=== PATIENT | female | born 1945 | race Caucasian/White ===

== ENCOUNTER → 2024-06-14 | Outpatient (CLI) | payer MEDICARE, OTHER, SELFPAY ==
[2024-06-14 09:31] LABS: Basophils # (Auto) 0.1 Thou/mm3 (0.0-0.2); Basophils % (Auto) 2 % (0-2.5); Eosinophils # (Auto) 0.1 Thou/mm3 (0.0-0.5); Eosinophils % (Auto) 2 % (0-10); Hematocrit 36.3 % (36.0-46.0); Hemoglobin 11.7 g/dL (12.0-16.0); Immature Granulocytes % (Auto) 0 % (0-0); Immature Granulocytes Auto 0.02 Thou/mm3 (0.00-0.00); Lymphocytes # (Auto) 2.1 Thou/mm3 (1.0-4.8); Lymphocytes % (Auto) 37 % (10-50); Mean Corpuscular HGB Conc 32.2 g/dl (31.0-37.0); Mean Corpuscular Hemoglobin 29.1 pg (25.0-35.0); Mean Corpuscular Volume 90 fL (80-100); Monocytes # (Auto) 0.4 Thou/mm3 (0.0-0.8); Monocytes % (Auto) 7 % (0-12); Neutrophils % (Auto) 53 % (37-80); Nucleated Red Blood Cell % 0 /100 WBC (0); Platelet Count 243 Thou/mm3 (140-440); RDW Standard Deviation 44.1 fL (36.4-46.3); Red Blood Count 4.02 Miln/mm3 (4.00-5.20); White Blood Count 5.8 Thou/mm3 (3.6-11.0)
[2024-06-14 10:00] LABS: CA 15-3 19.9 U/mL (<32.4); Carcinoembryonic Antigen 2.7 ng/mL (0.0-5.0)
[2024-06-14 10:01] LABS: Alanine Aminotransferase 10 U/L (10-49); Albumin, Serum 4.1 gm/dL (3.4-4.8); Albumin/Globulin Ratio 1.8 (1.2-2.2); Alkaline Phosphatase 87 U/L (46-116); Anion Gap 7 (7-16); Aspartate Amino Transferase 10 U/L (0-34); BUN/Creatinine Ratio 15 Ratio (12-20); Bilirubin,Total 0.4 mg/dL (0.3-1.2); Blood Urea Nitrogen 9 mg/dL (9-23); Carbon Dioxide 25.7 mMol/L (20.0-31.0); Chloride 106 mMol/L (98-107); Creatinine (Component) 0.6 mg/dL (0.6-1.3); Free T4 (Free Thyroxine) 1.07 ng/dL (0.89-1.76); Globulin 2.3 gm/dL (2.3-3.5); Glucose 200 mg/dL (74-106); Osmolality,Calculated 282 (275-295); Potassium 4.1 mMol/L (3.4-5.1); Sodium 139 mMol/L (136-145); Thyroid Stimulating Hormone 1.22 uIU/mL (0.55-4.78); Total Protein 6.4 gm/dL (5.7-8.2); eGFR > 60 See Note
[2024-06-14 10:15] LABS: Ferritin 14 ng/mL (7.3-270.7); Total Iron Binding Capacity 333 mcg/dL (250-425)
[2024-06-14 10:25] LABS: Iron 62 mcg/dL (50-170); Percent Iron Saturation 18 % (20-55); Unsaturated Iron Binding 271 (225-295)
== END | disposition home or self-care (01) ==
LOC: SCTO 08:29
PROVIDERS: PCP Family Medicine; Referring Provider Nurse Practitioner Family; Visit Provider Nurse Practitioner Family
DX: D50.9 Iron deficiency anemia, unspecified (principal)
CPT/HCPCS: 36415; 80053; 82378; 82728; 83540; 83550; 84439; 84443; 85025; 86300

== ENCOUNTER 2024-06-17 14:29 | Outpatient (RCR) | payer MEDICARE, OTHER, SELFPAY ==
--- NOTE | 2024-06-16 05:51 | CTCFLWUP_ITS ---
[address] [address] FOLLOW UP NOTE DATE OF VISIT: 06/15/2024 NAME: ZOEY TERRAZAS MR#: [id number] : 1945 AGE: 78 DIAGNOSIS: Stage IIA (pT2 pNO), ER positive, WA negative HER2 negative, low Oncotype Dx recurrence score of 24, left invasive lobular carcinoma, with lobular features, moderately differentiated, grade 2 of 3, Status post left simple mastectomy, left sentinel node biopsy, right prophylactic mastectomy 04/03/20 23, Dr. Slater. No radiation indicated. Anastrozole started on 06/02/2023, plan to tailor 06/02 2 mm left lower lobe pulmonary nodule, (08/15/2023) History of iron deficiency anemia secondary to gastric bypass surgery 2010 B12 deficiency, on monthly injections. DEXA scan done on 12/19/2021, osteopenia, on Fosamax. REASON FOR TODAY?S VISIT: Patient is here to follow-up on the thyroid biopsy. Patient was noted to have multiple nodules in he r thyroid. She does not follow-up with endocrinology. Thyroid ultrasound done showed multiple bilat eral thyroid nodules, consider ultrasound-guided fine-needle aspiration of right upper pole thyroid n odule, 15 x 7 x 11 mm, 04/05/2024. Unfortunately, patient did not complete labs prior to today's appoi ntment. Patient denies dysphagia. Patient denies any concerns or complaints. Patient is feeling well overall. Reports good appetite. Energy has improved since she started B12 injections. Taking anastrozole da brooklynn, Fosamax weekly and Citracal daily, tolerating well, denies body aches. Walking with assistance o f cane. Patient denies abdominal pain, denies cough, chest pain, fever. HISTORY OF PRESENT ILLNESS: PREVIOUS NOTE Zoey Terrazas is a 78-year-old ENG speaking fe male with history of gastric bypass surgery in 2010 for obesity, diabetes mellitus, former smoker, marrero d CBC drawn on 03/11/2019. Hemoglobin was 10.6, hematocrit 34.8, MCV 89, WBC count 7.4, platelets 23 7,000's. Iron saturation was 9%. History of iron deficiency anemia. Stage IIA (pT2 pNO), ER posit chavez, [place] negative HER2 negative, low Oncotype Dx recurrence score of 24, left invasive lobular carcino ma, moderately differentiated, grade 2 of 3, Status post left simple mastectomy, left sentinel node biopsy, right prophylactic mastectomy 04/03/20 23, Dr. Slater. 2011: Gastric bypass 04/14/2019: Hemoglobin 11.1, MCV 87, iron saturation 8%, ferritin 17. 05/27/2019?08/04/1999: Patient received 2 g of Venofer. 07/21/2019: WBC 9.0, hemoglobin 12.6, hematocrit 40, MCV 91, iron saturation 24%, ferritin 397. 01/27/2020: Hemoglobin 12.8, MCV 92, WBC 6.6, platelets 210,000. Iron saturation 42%, ferritin 296. 09/14/2021: Hemoglobin 12.6, MCV 91, WBC 6.0, ANC 2.5, platelets 249,000, 12/18/2021: Iron saturation 24%, ferritin 85, folate 5.32, B12 306. CBC not drawn. 12/19/2021: DEXA Impression: There is osteopenia based on lumbar spine measurements. There is osteopenia based on hip measurements Lumbar mineralization is decreased 2.5% compared with August 25, 2019 Hip mineralization is decreased 1.8% compared with August 25, 2019 01/08/2023: Mammogram 01/09/2023: breast ultrasound 02/11/2023: breast pathology 02/20/2023: breast MRI 04/03/2023: Bilateral mastectomy, pathology 05/13/2023: Hemoglobin 11.8, MCV 90, WBC 6.3, platelet count 210,000, iron saturation 23%, ferritin 1 1, B12 is 372, folate 24. 05/28/2023: Oncotype Dx score 08/15/2023: Hemoglobin 11.8, MCV 88 iron saturation 23%, ferritin 13, CEA 2.8, CA 15-3 is 19.3 08/15/2023: CT chest without contrast IMPRESSION: 6 mm left thyroid nodule 2 mm, adjacent 2 mm left lower lobe pulmonary nodules, with this study is baseline suggest 6 month follow-up CT chest without contrast Nodular thickening left adrenal gland, consider CT scan abdomen pelvis post intravenous contrast follow-up 09/16/2023: CT abdomen and pelvis with contrast Impression: Nodular thickening left adrenal gland Abnormal uterus, large, at least 5.8 cm hypodense uterine fundal mass, recommend transvaginal transabdominal pelvic sonography follow-up 09/23/2023: Left Breast US Findings: No cystic or solid mass noted Impression: BI-RADS Category 1: Negative study 10/14/2023: Abdominal ultrasound MPRESSION: Absent gallbladder Normal common bile duct Primary hepatocellular disease no focal liver lesions Moderate bilateral renal parenchymal scar formation, no hydronephrosis 10/14/2023: Pelvic/transvaginal ultrasound IMPRESSION: Large uterine fundal mass 6.8 x 6.9 x 7.1 cm, differential would include malignant neoplasm of the uterus Recommend MRI pelvis follow-up pre and postcontrast 10/20/2023 : brain MRI Impression: 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 02/13/2024: CT chest without contrast 04/05/2024: Thyroid ultrasound-multiple bilateral thyroid nodules, consider ultrasound-guided fine-nee dle aspiration of the upper pole right thyroid nodule 15 x 7 x 11 mm PAST MEDICAL HISTORY: Diabetes Arthritis Bullous pemphogoid Left breast invasive lobular carcinoma Brain meningioma PAST SURGICAL HISTORY: Cholecystectomy - 1979 Meningioma removed brain - 1999 Meningioma removed brain - 2000 Cataract surgery maurice - 2007 Gastric bypass- 2012 Right total knee replacement - 2014 Left knee surgery - 2016 Left total knee replacement - 10/2018 EGD- 09/2018 Colonoscopy - 2019 Bilateral mastectomy 04/03/[address] Slater at [facility] MEDICATIONS: carbamazepine Vitamin D3 [cholecalciferol (vitamin d3)] Flintstones Complete (iron) [pediatric multivitamin no.43/ferrous fumarate] Vitamin C [ascorbic acid] folic acid lisinopril ibuprofen anastrozole Citracal + D Slow Release [calcium carbonate and citrate/cholecalciferol (vit d3)] alendronate carBAMazepine glimepiride pantoprazole Medications last reconciled 05/04/2024 ALLERGIES: hydrocodone-acetaminophen REVIEW OF SYSTEMS Neurological: No headache, seizures or blurring of vision. Gastrointestinal: No nausea, vomiting, diarrhea or constipation. Cardiovascular: No palpitations or angina pains. Respiratory: No cough, chest pain or shortness of breath. VITAL SIGNS: Date Time PHYSICAL EXAMINATION: Conjunctivae is white Oral cavity: No Lesions. Neck: Supple, no adenopathy. Chest is clear to auscultation. No wheezes or rales audible. CVS: Rhythm regular, no murmurs. Abdomen is soft. No hepatosplenomegaly. Extremities: No pedal edema. No cyanosis. LABORATORY DATA: Date 06/03/2024 06/14/2024 Time 8:19 AM 8:45 AM CBC ?WHITE BLOOD COUNT (Thou/mm3) 7.1 5.8 ??RED BLOOD COUNT (Miln/mm3) 4.18 4.02 ??HEMOGLOBIN (gm/dl) 12.0 11.7 L ??HEMATOCRIT (%) 37.2 36.3 ??MCV (MEAN CORPUSCULAR VOL) (fl) 89 90 ??MCH (MEAN CORPUSCULAR HGB) (pg) 28.7 29.1 ??MCHC (MEAN CORPSCULR HGB CONC) (gm/dl) 32.3 32.2 ??RDW (RBC DISTRIBUTION WDTH) SD (fl) 44.5 44.1 ??PLATELET COUNT (Thou/mm3) 256 243 ??NEUTROPHILS %, AUTO (%) 55 53 ??LYMPH %, AUTO (%) 32 37 ??MONO %, AUTO (%) 10 7 ??EOS %, AUTO (%) 2 2 ??BASO %, AUTO (%) 2 2 ??NUCLEATED RBC % (/100 WBC) 0 0 ??NEUTROPHILS, AUTO (Thou/mm3) 3.9 3.0 ??LYMPH, AUTO (Thou/mm3) 2.3 2.1 ??MONO, AUTO (Thou/mm3) 0.7 0.4 ??EOS, AUTO (Thou/mm3) 0.1 0.1 ??BASO, AUTO (Thou/mm3) 0.1 0.1 ??NUCLEATED RBC # (Thou/mm3) 0.00 0.00 ??IMMATURE GRANULOCYTES % AUTO (%) 0 0 ??IMMATURE GRANULOCYTES, AUTO (Thou/mm3) 0.01 H 0.02 H Chemistry ?GLUCOSE,RANDOM (mg/dL) ? 200 H ??BLOOD UREA NITROGEN (mg/dL) ? 9 ??CREATININE (mg/dL) ? 0.60 ??SODIUM (mmol/L) ? 139 ??POTASSIUM (mmol/L) ? 4.1 ??CHLORIDE (mmol/L) ? 106 ??CO2 (CARBON DIOXIDE) (mmol/L) ? 25.7 ??ANION GAP (mmol/L) ? 7 ??OSMOLALITY, CALC ? 282 ??BUN/CREATININE RATIO (Ratio) ? 15 ??CrCl (CandG) (ml/min) ? 76.76 ??AST/SGOT (Unit/L) ? 10 ??ALT/SGPT (Unit/L) ? 10 ??ALKALINE PHOSPHATASE (Unit/L) ? 87 ??BILIRUBIN, TOTAL (mg/dL) ? 0.4 ??PROTEIN TOTAL (gm/dl) ? 6.4 ??ALBUMIN, SERUM (gm/dl) ? 4.1 ??GLOBULIN (gm/dl) ? 2.3 ??ALBUMIN/GLOBULIN RATIO ? 1.8 ??CALCIUM, SERUM (mg/dL) ? 9.0 ??CALCIUM SERUM (CORRECTED) (mg/dL) ? 9.0 Tumor Markers ?CEA (O*) (ng/ml) ? 2.7 Additional Labs ?TOTAL IRON BINDING CAP (S*) (mcg/dL) ? [C] 333 ??UNBOUND IBC (mcg/dL) ? 271 ?Initials PB ZZZ ??Approved By PB ? Other Labs ?CrCl (J) (ml/min) ? 76.2 ??PROTHROMBIN TIME (PATIENT) (Seconds) 11.5 ? ??INR 1.1 ? ??PARTIAL THROMBOPLASTIN TIME (Seconds) 27.6 ? ??TSH (THYROID STIM HORMONE) (uIU/mL) ? 1.22 ??FERRITIN (ng/ml) ? [C] 14 ??CA 15-3 (Unit/mL) ? 19.9 ??Iron (mcg/dL) ? 62 ??Percent Iron Saturation (%) ? 18 L ??Free T4 (Free Thyroxine) (ng/dL) ? 1.07 ??eGFR (See Note) ? > 60 ASSESSMENT AND PLAN: #1. Stage IIA (pT2 pNO), ER positive, WA negative, HER2 negative, low Oncotype Dx recurrence score of 24, left invasive lobular carcinoma, with lobular features, moderately differentiated, grade 2 of 3, Status post left simple mastectomy, left sentinel node biopsy, right prophylactic mastectomy 04/03/20 23, Dr. Slater, declined revision for excess skin at surgical site. January 09, 2023 Mammogram BI-RADS 4 suspicious for malignancy upper outer left breast February 11, 2023 breast lesion biopsy showed left invasive lobular carcinoma February 20, 2023 left breast MRI which showed BI-RADS 5, No chest wall mass or pathologic lymphadenop athy noted Continue anastrozole daily, plan for 7 years. Tolerating medication well. CEA CA 15-3 prior to follow-up #2. Multiple bilateral thyroid nodules, shown an ultrasound of thyroid, 04/05/2024. Fine-needle aspiration pathology is negative advised to follow-up with primary care and endocrinology #3. MRI of pelvis with and without contrast, large uterine fundal mass, 6.6 x 5.6 x 7.1 cm, most cons istent with fibroid degeneration, (11/13/2023). Following up with [facility], Dr Javier, endometrial biopsy 12/23/2023, patient was told it was negative, marrero s follow-up with Dr Javier in June 2024. We do not have report. Requested pathology report. #4. Former smoker, quit in 1999. CT chest showed subcentimeter pulmonary nodules, recommend 6-month follow-up CT, 02/13/2024. Has existing CT ordered for 08/2024 #5. History of iron deficiency anemia secondary to gastric bypass surgery 2010 Status post 2 g of Venofer. Last dose was given on August 04, 2019. Patient had EGD and colonoscopy done [place] [address] Villegas. According Ms. Terrazas they were negative studies. CBC CMP iron panel ferritin prior to follow-up #6. History of B12 deficiency secondary to gastric bypass surgery 2010 Improved energy levels since starting monthly B12 injection Continue with monthly B12 injections #7. Osteopenia, DEXA scan done on 0 12/19/2021, and osteopenia, taking Fosamax weekly, calcium twice d aily. Ordered DEXA Continue Fosamax 70 mg weekly Continue Citracal 1 tablet twice daily. #8. Brain MRI, stable 8 x 6 mm enhancing lesion in the left cerebellopontine angle. History of meningioma, f/u with neurology, Dr Cortez, asymptomatic. #9. History of pemphigus. Asymptomatic, continue following up with PCP. RTC in 6 months Follow-up with primary care for her above chronic problems. Endocrinology consult placed to follow-u p on thyroid nodules for closer monitoring. Signed by Dr Duarte Electronically Signed by: {Object.Sanct_ID*PnP.NameFL}, {Object.Sanct_ID*PnP.Suffix} on {Object.Sanct _Date} at {Object.Sanct_Time} Electronically Signed by: {Object.Sanct_ID2*PnP.NameFL}, {Object.Sanct_ID2*PnP.Suffix} on {Object.Laureano ct_Date2@d01b} at {Object.Sanct_Time2@t3b} cc: Nabil Tijerina, Referring: Walker Tijerina This document was completed utilizing speech recognition software. Grammatical errors, random word in sertions, pronoun errors, and incomplete sentences are an occasional consequence of this system due t o software limitations, ambient noise, and hardware issues. Any formal questions or concerns about th e content, text or information contained within the body of this dictation should be directly address ed to the provider for clarification. Patient: ZOEY TERRAZAS : 1945 MR#: [id number] FOLLOW UP NOTE Page 16 of 16
== END 2024-07-13 23:59 | disposition home or self-care (01) ==
LOC: SCTC 14:29
PROVIDERS: PCP Family Medicine; Referring Provider Family Medicine; Visit Provider Internal Medicine Hematology & Oncology
DX: C50.412 Malignant neoplasm of upper-outer quadrant of left female breast (principal); Z17.0 Estrogen receptor positive status [ER+]; Z17.22 Progesterone receptor negative status; Z17.32 Human epidermal growth factor receptor 2 negative status; Z90.13 Acquired absence of bilateral breasts and nipples; E04.2 Nontoxic multinodular goiter; E53.8 Deficiency of other specified B group vitamins; R91.1 Solitary pulmonary nodule; R19.09 Other intra-abdominal and pelvic swelling, mass and lump; Z87.891 Personal history of nicotine dependence; M85.89 Other specified disorders of bone density and structure, multiple sites; Z79.811 Long term (current) use of aromatase inhibitors; Z86.2 Personal history of diseases of the blood and blood-forming organs and certain disorders involving the immune mechanism
CPT/HCPCS: 96372; 99212; J3420; G0463

== ENCOUNTER → 2024-06-18 | Outpatient (CLI) | payer MEDICARE, OTHER, SELFPAY ==
--- NOTE | 2024-06-18 12:20 | XR_ITS ---
Examination: Bone densitometry Date and time of exam:June 18, 2024 1222 hours INDICATIONS: Menopause age 58 breast carcinoma diagnosis 2 years ago, personal history osteopenia Technique: Lumbar spine and hip total bone mineralization values of an calculated. Peak reference and age match control results have been displayed. Findings: Lumbar spine total bone mineralization is0.840 gm/cm2. This is 1.9 standard deviations below peak reference. This is 0.8 standard deviations above age-matched controls. Hip total bone mineralization is 0.696 gm/cm2 This is 2.0 standard deviations below peak reference. This is 0.0 standard deviations at age-matched controls Impression: There is osteopenia based on lumbar spine measurements. There is osteopenia based on hip measurements Lumbar mineralization is increased 3.4% compared with December 19, 2021 Hip mineralization is decreased 4.1% compared with December 19, 2021
[2024-06-18 13:36] LABS: Ferritin 16 ng/mL (7.3-270.7); Total Iron Binding Capacity 344 mcg/dL (250-425)
[2024-06-18 13:49] LABS: Iron 128 mcg/dL (50-170); Percent Iron Saturation 37 % (20-55); Unsaturated Iron Binding 216 (225-295)
[2024-06-18 13:51] LABS: CA 15-3 22.7 U/mL (<32.4); Carcinoembryonic Antigen 2.3 ng/mL (0.0-5.0)
== END | disposition home or self-care (01) ==
LOC: CDIM 12:07 → SCTO 12:24
PROVIDERS: Referring Provider Nurse Practitioner Family; Visit Provider Radiology Diagnostic Radiology
DX: M85.88 Other specified disorders of bone density and structure, other site (principal); D50.9 Iron deficiency anemia, unspecified
CPT/HCPCS: 36415; 77080; 82378; 82728; 83540; 83550; 86300

== ENCOUNTER → 2024-06-24 | Outpatient (CLI) | payer MEDICARE, OTHER, SELFPAY ==
[2024-06-24 09:15] LABS: Glucose Estimated Average 169 mg/dL (80-131); Hemoglobin A1C 7.5 % Hgb (4.8-6.0)
== END | disposition home or self-care (01) ==
LOC: COPL 07:52
PROVIDERS: PCP Family Medicine; Referring Provider Family Medicine; Visit Provider Family Medicine
DX: E11.65 Type 2 diabetes mellitus with hyperglycemia (principal)
CPT/HCPCS: 36415; 83036

== ENCOUNTER 2024-07-20 14:25 | Outpatient (RCR) | payer MEDICARE, OTHER, SELFPAY | END 2024-08-13 23:59 | disposition home or self-care (01) | LOC: SCTC 14:25 | PROVIDERS: PCP Family Medicine; Referring Provider Family Medicine; Visit Provider Internal Medicine Hematology & Oncology | DX: E53.8 Deficiency of other specified B group vitamins (principal) | CPT/HCPCS: 96372; J3420 ==

== ENCOUNTER → 2024-07-22 | Outpatient (CLI) | payer MEDICARE, OTHER, SELFPAY ==
[2024-07-22 14:30] LABS: Glucose Estimated Average 177 mg/dL (80-131); Hemoglobin A1C 7.8 % Hgb (4.8-6.0)
== END | disposition home or self-care (01) ==
LOC: COPL 13:42
PROVIDERS: PCP Family Medicine; Referring Provider Family Medicine; Visit Provider Family Medicine
DX: E11.65 Type 2 diabetes mellitus with hyperglycemia (principal)
CPT/HCPCS: 36415; 83036

== ENCOUNTER 2024-08-17 14:25 | Outpatient (RCR) | payer MEDICARE, OTHER, SELFPAY | END 2024-09-10 23:59 | disposition home or self-care (01) | LOC: SCTC 14:25 | PROVIDERS: PCP Family Medicine; Referring Provider Family Medicine; Visit Provider Internal Medicine Hematology & Oncology | DX: E53.8 Deficiency of other specified B group vitamins (principal); Z98.84 Bariatric surgery status | CPT/HCPCS: 96372; J3420 ==

== ENCOUNTER → 2024-08-19 | Outpatient (CLI) | payer MEDICARE, OTHER, SELFPAY ==
--- NOTE | 2024-08-19 15:00 | XR_ITS ---
Examination: CT chest, without intravenous contrast. Sagittal and coronal 2-D reconstructions. Exam date and time: August 19, 2024 1535 hours INDICATIONS: Diagnosis bilateral breast carcinoma history 2 years ago, pulmonary nodules on chest CT February 13, 2024 CTDI:vol (mGy) 7.56 DLP: (mGycm) 266 Technique: Multiple 3.0 mm axial sections of the chest to been obtained. Bone and lung density settings are obtained. Sagittal and coronal 2-D reconstructions have been obtained. Low dose protocols were performed. One or more of the following dose reduction techniques were used; automated exposure control, adjustment of the mA and/or KV according to patient size, use of iterative reconstruction technique. Findings: Multiple small thyroid nodules No thoracic aortic aneurysm dilatation Pulmonary artery segments are not enlarged. Bilateral pulmonary nodules again noted No new pulmonary nodules No pneumonia or pulmonary edema No pleural disease No breast or chest wall mass No axillary lymphadenopathy No focal visualized liver or splenic lesions IMPRESSION: Multiple thyroid nodules, consider thyroid sonography follow-up Stable bilateral pulmonary nodules, consider 1 additional 6 month follow-up CT chest without contrast
== END | disposition home or self-care (01) ==
PROVIDERS: PCP Family Medicine; Referring Provider Nurse Practitioner Family; Visit Provider Nurse Practitioner Family
DX: E04.2 Nontoxic multinodular goiter (principal)
CPT/HCPCS: 71250

== ENCOUNTER → 2024-09-10 | Outpatient (CLI) | payer MEDICARE, OTHER, SELFPAY ==
[2024-09-10 15:21] LABS: Basophils # (Auto) 0.1 Thou/mm3 (0.0-0.2); Basophils % (Auto) 1 % (0-2.5); Eosinophils # (Auto) 0.2 Thou/mm3 (0.0-0.5); Eosinophils % (Auto) 3 % (0-10); Hematocrit 37.5 % (36.0-46.0); Hemoglobin 12.1 g/dL (12.0-16.0); Immature Granulocytes % (Auto) 0 % (0-0); Immature Granulocytes Auto 0.01 Thou/mm3 (0.00-0.00); Lymphocytes # (Auto) 2.1 Thou/mm3 (1.0-4.8); Lymphocytes % (Auto) 30 % (10-50); Mean Corpuscular HGB Conc 32.3 g/dl (31.0-37.0); Mean Corpuscular Hemoglobin 28.1 pg (25.0-35.0); Mean Corpuscular Volume 87 fL (80-100); Monocytes # (Auto) 0.6 Thou/mm3 (0.0-0.8); Monocytes % (Auto) 8 % (0-12); Neutrophils # (Auto) 4.1 Thou/mm3 (1.8-7.7); Neutrophils % (Auto) 57 % (37-80); Nucleated Red Blood Cell % 0 /100 WBC (0); Platelet Count 316 Thou/mm3 (140-440); RDW Standard Deviation 42.2 fL (36.4-46.3); Red Blood Count 4.31 Miln/mm3 (4.00-5.20); White Blood Count 7.2 Thou/mm3 (3.6-11.0)
[2024-09-10 15:40] LABS: Ferritin 14 ng/mL (7.3-270.7); Iron 52 mcg/dL (50-170); Percent Iron Saturation 15 % (20-55); Total Iron Binding Capacity 345 mcg/dL (250-425); Unsaturated Iron Binding 293 (225-295)
[2024-09-10 15:41] LABS: Alanine Aminotransferase 13 U/L (10-49); Albumin/Globulin Ratio 1.7 (1.2-2.2); Alkaline Phosphatase 89 U/L (46-116); Anion Gap 8 (7-16); Aspartate Amino Transferase 12 U/L (0-34); BUN/Creatinine Ratio 18 Ratio (12-20); Bilirubin,Total 0.2 mg/dL (0.3-1.2); Blood Urea Nitrogen 14 mg/dL (9-23); Calcium 9.1 mg/dL (8.3-10.6); Calcium (Corrected) 9.1 mg/dL (8.5-10.1); Chloride 109 mMol/L (98-107); Creatinine (Component) 0.8 mg/dL (0.6-1.3); Free T4 (Free Thyroxine) 1.04 ng/dL (0.89-1.76); Globulin 2.4 gm/dL (2.3-3.5); Glucose 229 mg/dL (74-106); Osmolality,Calculated 290 (275-295); Potassium 4.4 mMol/L (3.4-5.1); Sodium 142 mMol/L (136-145); Thyroid Stimulating Hormone 1.69 uIU/mL (0.55-4.78); Total Protein 6.4 gm/dL (5.7-8.2); eGFR > 60 See Note
[2024-09-10 15:55] LABS: CA 15-3 16.6 U/mL (<32.4); Folate 16.43 ng/mL (>5.38); Vitamin B12 521 pg/mL (211-911)
== END | disposition home or self-care (01) ==
LOC: SCTO 14:10
PROVIDERS: PCP Family Medicine; Referring Provider Nurse Practitioner Family; Visit Provider Nurse Practitioner Family
DX: D50.9 Iron deficiency anemia, unspecified (principal)
CPT/HCPCS: 36415; 80053; 82378; 82607; 82728; 82746; 83540; 83550; 84439; 84443; 85025; 86300

== ENCOUNTER 2024-09-15 14:32 | Outpatient (RCR) | payer MEDICARE, OTHER, SELFPAY ==
--- NOTE | 2024-09-14 16:24 | CTCFLWUP_ITS ---
Patient: OFE TERRAZAS : 1945 Page 2 of 2 FOLLOW UP NOTE DATE OF SERVICE: 09/14/2024 NAME: OFE TERRAZAS ACCOUNT: [id number] : 1945 AGE: 78 INTERVAL HISTORY: Patient is here for follow-up. Doing well with no new lumps or bumps anywhere. Denies any appetite or weight changes. Patient lives mostly alone and does not like cooking. Patient mostly eats [employer] [facility] [place] ONCOLOGY HISTORY: DIAGNOSIS: Iron deficiency anemia, unspecified [ICD10] D50.9 Stage IIA (pT2 pNO), ER positive, DE negative HER2 negative, low Oncotype Dx recurrence score of 24, left invasive lobular carcinoma, with lobular features, moderately differentiated, grade 2 of 3, Status post left simple mastectomy, left sentinel node biopsy, right prophylactic mastectomy 04/03/2023, Dr. Slater. No radiation indicated. Anastrozole started on 06/02/2023, plan to tailor 06/02 2 mm left lower lobe pulmonary nodule, (08/15/2023) History of iron deficiency anemia secondary to gastric bypass surgery 2010 B12 deficiency, on monthly injections. DEXA scan done on 12/19/2021, osteopenia, on Fosamax. DATE OF DIAGNOSIS: 04/03/2023 STAGE/TNM: Stage II ER positive breast cancer s/p bilateral mastectomy TREATMENT HISTORY: Care?Plan Start?Date Cycle Day Intent VENOfer?200mg?IV?weekly 05/27/2019 1 7 Palliative VENOfer?200mg?IV?wkly 01/30/2021 1 70 Palliative B?12?initial 04/06/2024 1 28 Palliative HISTORY OF PRESENT ILLNESS: PREVIOUS NOTE Ofe Terrazas is a 78-year-old ENG speaking female with history of gastric bypass surgery in 2010 for obesity, diabetes mellitus, former smoker, had CBC drawn on 03/11/2019. Hemoglobin was 10.6, hematocrit 34.8, MCV 89, WBC count 7.4, platelets 237,000's. Iron saturation was 9%. History of iron deficiency anemia. Stage IIA (pT2 pNO), ER positive, DE negative HER2 negative, low Oncotype Dx recurrence score of 24, left invasive lobular carcinoma, moderately differentiated, grade 2 of 3, Status post left simple mastectomy, left sentinel node biopsy, right prophylactic mastectomy 04/03/2023, Dr. Slater. 2011: Gastric bypass 04/14/2019: Hemoglobin 11.1, MCV 87, iron saturation 8%, ferritin 17. 05/27/2019?08/04/1999: Patient received 2 g of Venofer. 07/21/2019: WBC 9.0, hemoglobin 12.6, hematocrit 40, MCV 91, iron saturation 24%, ferritin 397. 01/27/2020: Hemoglobin 12.8, MCV 92, WBC 6.6, platelets 210,000. Iron saturation 42%, ferritin 296. 09/14/2021: Hemoglobin 12.6, MCV 91, WBC 6.0, ANC 2.5, platelets 249,000, 12/18/2021: Iron saturation 24%, ferritin 85, folate 5.32, B12 306. CBC not drawn. 12/19/2021: DEXA Impression: There is osteopenia based on lumbar spine measurements. There is osteopenia based on hip measurements Lumbar mineralization is decreased 2.5% compared with August 25, 2019 Hip mineralization is decreased 1.8% compared with August 25, 2019 01/08/2023: Mammogram 01/09/2023: breast ultrasound 02/11/2023: breast pathology 02/20/2023: breast MRI 04/03/2023: Bilateral mastectomy, pathology 05/13/2023: Hemoglobin 11.8, MCV 90, WBC 6.3, platelet count 210,000, iron saturation 23%, ferritin 11, B12 is 372, folate 24. 05/28/2023: Oncotype Dx score 08/15/2023: Hemoglobin 11.8, MCV 88 iron saturation 23%, ferritin 13, CEA 2.8, CA 15-3 is 19.3 08/15/2023: CT chest without contrast IMPRESSION: 6 mm left thyroid nodule 2 mm, adjacent 2 mm left lower lobe pulmonary nodules, with this study is baseline suggest 6 month follow-up CT chest without contrast Nodular thickening left adrenal gland, consider CT scan abdomen pelvis post intravenous contrast follow-up 09/16/2023: CT abdomen and pelvis with contrast Impression: Nodular thickening left adrenal gland Abnormal uterus, large, at least 5.8 cm hypodense uterine fundal mass, recommend transvaginal transabdominal pelvic sonography follow-up 09/23/2023: Left Breast US Findings: No cystic or solid mass noted Impression: BI-RADS Category 1: Negative study 10/14/2023: Abdominal ultrasound MPRESSION: Absent gallbladder Normal common bile duct Primary hepatocellular disease no focal liver lesions Moderate bilateral renal parenchymal scar formation, no hydronephrosis 10/14/2023: Pelvic/transvaginal ultrasound IMPRESSION: Large uterine fundal mass 6.8 x 6.9 x 7.1 cm, differential would include malignant neoplasm of the uterus Recommend MRI pelvis follow-up pre and postcontrast 10/20/2023 : brain MRI Impression: Stable 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 02/13/2024: CT chest without contrast 04/05/2024: Thyroid ultrasound-multiple bilateral thyroid nodules, consider ultrasound-guided fine-needle aspiration of the upper pole right thyroid nodule 15 x 7 x 11 mm OTHER MEDICAL HISTORY/CONDITIONS: FAMILY HISTORY: ?Clone Family Hx? SOCIAL HISTORY: RESIDENT SERVICES COORDINATOR HISTORY: MEDICATIONS: 1. alendronate - 70 mg 1 tab one tab po once a week 2. anastrozole - 1 mg 1 tab 1 tab po q daily 3. carbamazepine - 200 mg 1 tab Daily 4. carBAMazepine - 200 mg 1 Capsule Daily 5. Citracal + D Slow Release - 600 mg-12.5 mcg (500 unit) 1 tab one tab po twice a day 6. Flintstones Complete (iron) - 18 mg iron 1 tab Daily 7. folic acid - 1 mg 1 tab Daily 8. glimepiride - 2 mg 1 tab Daily 9. ibuprofen - 200 mg 1 tab As needed 10. lisinopril - 10 mg 1 tab Daily 11. pantoprazole - 40 mg 1 Daily 12. Vitamin C - 250 mg 1 tab Daily 13. Vitamin D3 - 1,000 unit 1 Capsule Daily?Palabra Meds? Medications Last Reconciled by Evelia Noonan MA on 09/14/2024 ALLERGIES: hydrocodone-acetaminophen REVIEW OF SYSTEMS: A complete 14-point review of systems was performed and is negative except as noted in interval history. PHYSICAL EXAMINATION: VITAL SIGNS: Temperature?97.5, B/P?144/77, Oxygen?Saturation?98% Weight?134.8?lbs (Change?since?08/17/24:?0?lbs) PAIN: 0 - No pain ECOG Performance Status: 0 - Asymptomatic and fully active GENERAL APPEARANCE: Appears well, in no apparent distress, appropriately interactive. HEENT: Normocephalic, no temporal wasting, normal conjunctiva, no scleral icterus, normal hearing, lips without lesions, neck normal range of motion. CARDIOVASCULAR: Not assessed. PULMONARY: Normal respiratory effort, no respiratory distress or use of accessory muscles, speaking in full sentences, no tachypnea. EXTREMITIES: No pedal edema or cyanosis. SKIN: Normal skin appearance. NEUROLOGIC: Alert and oriented x4. PSHYCHIATRIC: The patient often ask questions to be repeated and do not answer everything appropriately. She also forgets easy while conversing LABORATORY DATA: I have personally reviewed and interpreted each of the patient?s relevant lab tests, abnormal findings are below: Date 09/10/24 ??GLUCOSE,RANDOM?(mg/dL) 229?H ??BLOOD?UREA?NITROGEN?(mg/dL) 14 ??CREATININE?(mg/dL) 0.80 ??SODIUM?(mmol/L) 142 ??POTASSIUM?(mmol/L) 4.4 ??CHLORIDE?(mmol/L) 109?H ??CrCl?(CandG)?(ml/min) 55.04 ??AST/SGOT?(Unit/L) 12 ??ALT/SGPT?(Unit/L) 13 ??ALKALINE?PHOSPHATASE?(Unit/L) 89 ??BILIRUBIN,?TOTAL?(mg/dL) 0.2?L ??PROTEIN?TOTAL?(gm/dl) 6.4 ??ALBUMIN,?SERUM?(gm/dl) 4.0 ??GLOBULIN?(gm/dl) 2.4 ??ALBUMIN/GLOBULIN?RATIO 1.7 ??CALCIUM,?SERUM?(mg/dL) 9.1 ??CALCIUM?SERUM?(CORRECTED)?(mg/dL) 9.1 ASSESSMENT/PLAN #1Stage IIA (pT2 pNO), ER positive, DE negative, HER2 negative, low Oncotype Dx recurrence score of 24, left invasive lobular carcinoma, with lobular features, moderately differentiated, grade 2 of 3, Status post left simple mastectomy, left sentinel node biopsy, right prophylactic mastectomy 04/03/2023, Dr. Slater, declined revision for excess skin at surgical site. January 09, 2023 Mammogram BI-RADS 4 suspicious for malignancy upper outer left breast February 11, 2023 breast lesion biopsy showed left invasive lobular carcinoma February 20, 2023 left breast MRI which showed BI-RADS 5, No chest wall mass or pathologic lymphadenopathy noted Continue anastrozole daily, plan for 7 years. Tolerating medication well. CEA CA 15-3 prior to follow-up Advised to take multivitamin every day containing vitamin D Advised to eat healthy meals Information gave about adult feeding programs in the county #2 multiple thyroid nodules FNA C was negative Advised to follow-up with endocrinology #3 MRI of the pelvis has shown uterine mass Advised to follow-up with gynecology. Patient did had a biopsy and was told it was negative #4 lung nodules Patient is a former smoker Recent CT scan is all negative with no growth in the nodules Will do another CT in 6 months #4 osteopenia Will continue Fosamax and calcium/d3 CBC CMP CT scan RETURN TO CLINIC: I will see her back in the clinic in 6 month. BILLING AND COMPLIANCE: I reviewed external records from providers outside my specialty as summarized above. I spent a total of 50 minutes on this patient?s care on the day of their visit excluding time spent related to any billed procedures. This time includes time spent with the patient as well as time spent documenting in the medical record, reviewing patients records and tests, obtaining history, placing orders, communicating with other healthcare professionals, counseling the patient, family or caregiver, and/or care coordination for the diagnoses above. Electronically Signed by: Eloy Duarte MD T: 4:22 PM CC: PCP: Evelia Sales Referring: Evelia Sales This document was completed utilizing speech recognition software. Grammatical errors, random word insertions, pronoun errors, and incomplete sentences are an occasional consequence of this system due to software limitations, ambient noise, and hardware issues. Any formal questions or concerns about the content, text or information contained within the body of this dictation should be directly addressed to the provider for clarification.
== END 2024-10-11 23:59 | disposition home or self-care (01) ==
LOC: SCTC 14:32
PROVIDERS: PCP Family Medicine; Referring Provider Family Medicine; Visit Provider Internal Medicine Hematology & Oncology
DX: C50.412 Malignant neoplasm of upper-outer quadrant of left female breast (principal); Z17.0 Estrogen receptor positive status [ER+]; Z17.22 Progesterone receptor negative status; Z17.32 Human epidermal growth factor receptor 2 negative status; Z90.12 Acquired absence of left breast and nipple; E04.2 Nontoxic multinodular goiter; E53.8 Deficiency of other specified B group vitamins; N85.8 Other specified noninflammatory disorders of uterus; R91.8 Other nonspecific abnormal finding of lung field; Z87.891 Personal history of nicotine dependence; M85.89 Other specified disorders of bone density and structure, multiple sites; Z79.83 Long term (current) use of bisphosphonates; Z79.811 Long term (current) use of aromatase inhibitors
CPT/HCPCS: 96372; 99212; J3420; G0463

== ENCOUNTER → 2024-11-02 | Outpatient (CLI) | payer MEDICARE, OTHER, SELFPAY ==
[2024-11-02 10:16] LABS: Glucose Estimated Average 183 mg/dL (80-131)
== END | disposition home or self-care (01) ==
LOC: COPL 09:23
PROVIDERS: PCP Family Medicine; Referring Provider Family Medicine; Visit Provider Family Medicine
DX: E11.65 Type 2 diabetes mellitus with hyperglycemia (principal)
CPT/HCPCS: 36415; 83036

== ENCOUNTER 2024-11-10 14:03 | Outpatient (RCR) | payer MEDICARE, OTHER, SELFPAY | END 2024-11-10 23:59 | disposition home or self-care (01) | LOC: SCTC 14:03 | PROVIDERS: PCP Family Medicine; Referring Provider Family Medicine; Visit Provider Internal Medicine Hematology & Oncology | DX: E53.8 Deficiency of other specified B group vitamins (principal); D50.9 Iron deficiency anemia, unspecified | CPT/HCPCS: 96372; J3420 ==

== ENCOUNTER 2024-12-08 14:03 | Outpatient (RCR) | payer MEDICARE, OTHER, SELFPAY | END 2024-12-11 23:59 | disposition home or self-care (01) | LOC: SCTC 14:03 | PROVIDERS: PCP Family Medicine; Referring Provider Family Medicine; Visit Provider Internal Medicine Hematology & Oncology | DX: E53.8 Deficiency of other specified B group vitamins (principal); D50.9 Iron deficiency anemia, unspecified; C50.911 Malignant neoplasm of unspecified site of right female breast; Z17.0 Estrogen receptor positive status [ER+]; Z17.22 Progesterone receptor negative status; Z17.32 Human epidermal growth factor receptor 2 negative status; Z90.13 Acquired absence of bilateral breasts and nipples | CPT/HCPCS: 96372; J3420 ==

== ENCOUNTER 2025-01-05 13:55 | Outpatient (RCR) | payer MEDICARE, OTHER, SELFPAY | END 2025-01-10 23:59 | disposition home or self-care (01) | LOC: SCTC 13:55 | PROVIDERS: PCP Family Medicine; Referring Provider Family Medicine; Visit Provider Internal Medicine Hematology & Oncology | DX: E53.8 Deficiency of other specified B group vitamins (principal); D50.9 Iron deficiency anemia, unspecified; R91.1 Solitary pulmonary nodule; E04.2 Nontoxic multinodular goiter; Z87.891 Personal history of nicotine dependence; Z90.12 Acquired absence of left breast and nipple; M85.89 Other specified disorders of bone density and structure, multiple sites | CPT/HCPCS: 96372; 96374; J3420 ==

== ENCOUNTER 2025-01-05 15:56 | Emergency (ER) | payer MEDICARE, OTHER, SELFPAY ==
[2025-01-05 16:38] VITALS: BP 154/70; PULSE 85; RESP 18; TEMP 36.7; O2SAT 97; BMI 23.6
--- NOTE | 2025-01-05 16:53 | PD.EDFALL ---
ED Fall Injury RME/HPI General Chief Complaint: Fall Stated Complaint: Fall on Friday night hit back of head Time Seen by Provider: 01/05/25 16:52 Arrival date/time: 01/05/25 15:56 Mode of arrival: ambulatory Limitations: no limitations RME / HPI RME / HPI Narrative: 79-year-old female presents to the ED with complaint of mild pain to the back of her head status post ground-level fall, patient fell face last Friday. Patient tells me she attempted to get out of bed last night and was walking to her left and she was not able to ambulate as before her fall. MD complaint: fall Onset (ago): day(s) (3) Fall from: standing Fall witnessed: no Place fall occurred: home Related Data Home Medications ?Medication ?Instructions ?Recorded ?Confirmed metformin 500 mg tablet 1,000 mg PO DAILY 10/22/18 01/10/23 lisinopril 10 mg tablet 1 tab PO QDAY 12/13/21 01/10/23 carbamazepine 200 mg 200 mg PO DAILY 01/10/23 01/10/23 capsule,extended release [id number] folic acid 1 mg tablet 1 mg PO DAILY 01/10/23 01/10/23 semaglutide 2 mg/dose (8 mg/3 mL) 2 mg subcut QWEEK 01/10/23 01/10/23 subcutaneous pen injector (Ozempic) Allergies Allergy/AdvReac Type Severity Reaction Status Date / Time hydrocodone (From [place]) Allergy Hypertensio Verified 01/05/25 16:01 n oxycodone Allergy Vomiting Verified 01/05/25 16:01 suture Allergy Blister Verified 01/05/25 16:01 Review of Systems Constitutional Constitutional: Reports system reviewed and no additional complaints, except as documented Eyes Eyes: Reports system reviewed and no additional complaints, except as documented, Denies dry eyes, Denies exophthalmos and Reports floaters Cardiovascular Cardiovascular: Denies chest pain with activity and Denies claudication ED Exam General Limitations: Present no limitations General appearance: Present alert and in no apparent distress Head Head exam: Present atraumatic Eye Eye exam: Present normal appearance, PERRL and EOMI ENT ENT exam: Present normal exam, normal oropharynx and mucous membranes moist Neck Neck exam: Present normal inspection, full ROM and trachea midline Chest Chest inspection: Present normal inspection and symmetric chest wall rise Respiratory Respiratory exam: Present normal lung sounds bilaterally Cardiovascular Cardiovascular exam: Present regular rate, normal rhythm and normal heart sounds Extremities Exam Extremities exam: Present normal inspection and full ROM Back Exam Back exam: Present normal inspection and full ROM Neurological Exam Neurological exam: Present alert and oriented X3 Psychiatric Psychiatric exam: Present normal affect and normal mood Skin Skin exam: Present warm, dry, intact and normal color Course Course Course Narrative: CT of the head Quality Measures none (NA) Orders Category Date Time Status CT head/brain wo con Stat Exams 01/05/25 17:00 Completed Vital Signs Vital signs: Vital Signs Temperature 98.1 F 01/05/25 16:38 Pulse Rate 85 01/05/25 16:38 Respiratory Rate 18 01/05/25 16:38 Blood Pressure 154/70 H 01/05/25 16:38 Pulse Oximetry (%) 97 01/05/25 16:38 Oxygen Delivery Method Room Air 01/05/25 16:38 Fall MDM Narrative MDM Narrative:: Patient will be made aware of her CT results. She is to be discharged in no apparent distress and she is to follow-up with primary care physician this coming week. Patient data External records reviewed:: Other (specify) (NA) Clinical information provided by:: patient Social determinants that could affect healthcare access:: none (NA) Patient has the following chronic illnesses:: NA How is presenting disease/condition affected by chronic disease/condition?: caused by (TRIPPING) Evaluation data The following diagnostics were reviewed and interpreted by me:: radiology exam(s) (CT OF THE HEAD NEGATIVE) Lab and/or radiology exams considered but not ordered:: NA Interpretation Summary: NA Medications / Prescriptions Medications or Prescriptions considered but not ordered:: NA Medication administrations:: NA Consultations Consultation(s) initiated? (list below): No Diagnosis Fall Differential Diagnosis: syncope, concussion with loss of consciousness and concussion without loss of consciousness Most likely diagnosis given after review of the tests above:: NA Admission Indicated Admission indicated?: not indicated Admission Request Was there a request for admission?: No Disposition Plan Disposition Plan: Discharge Discharge Attestation Discharge Attestation: The patient and all family members were given an opportunity to ask questions and understood the discharge instructions. Discharge instructions specifically effects, indications for sooner follow up or return to the emergency department, and the expected course of current diagnosis. Patient condition: Stable Discharge Plan Plan Patient Disposition: HOME (Self Care) Discharge Disposition comment: Discharged home in no apparent distress Prescriptions/Referrals Prescriptions/Med Rec: No Action metformin 500 mg Tablet 1,000 mg PO DAILY lisinopril 10 mg tablet 1 tab PO QDAY Patient Comments: TAKE 1 TABLET BY MOUTH EVERY DAY folic acid 1 mg tablet 1 mg PO DAILY carbamazepine 200 mg capsule, ER multiphase 12 hr 200 mg PO DAILY Patient Comments: TAKE 1 CAPSULE BY MOUTH EVERY DAY Ozempic 2 mg/dose (8 mg/3 mL) Pen Injector 2 mg SUBCUT QWEEK Referrals: Jesús Monet MD [Primary Care Provider] - In 1 week Problem List Clinical Impression: Fall Patient/Caregiver Discharge Instructions Discharge Activity: activity as tolerated Education Materials: ED Fall Dizziness Weakn Balance Print Language: Monegasque Stand Alone Forms: Aisha Award Info., Patient Portal Info Letter PA/ELECTRONIC FIELD SERVICE ENGINEER Supervising Physician PA/ELECTRONIC FIELD SERVICE ENGINEER Supervising Physician: Ceci
--- NOTE | 2025-01-05 17:00 | XR_ITS ---
Examination: CT brain head without contrast. 2-D sagittal coronal reconstructions Date and time of exam:January 05, 2025, 1729 hours Comparison December 30, 2022 INDICATIONS: Ground-level fall 2 days ago with injury to the head, right-sided body weakness headache and dizziness CTDI: vol (mGy):45.2 DLP: (mGycm):896 Technique: Multiple CT axial sections of the brain have been obtained, 5 mm slice thickness. Contrast has not been administered. 2-D sagittal, coronal reconstructions have been obtained Low dose protocols were performed. One or more of the following dose reduction techniques were used; automated exposure control, adjustment of the mA and/or KV according to patient size, use of iterative reconstruction technique. Findings: No significant ventricular enlargement. Intra-axial or extra-axial hemorrhage density is not seen. No mass effect or midline shift Basal cisterns are not remarkable. Fourth ventricle is midline. Left craniotomy defect with encephalomalacia in the left temporal lobe Impression: No interval acute hemorrhage, mass effect or midline shift
--- NOTE | 2025-01-05 19:38 | XR_ITS ---
Examination: CT cervical spine without contrast 2-D sagittal reconstructions 2-D coronal reconstructions 3-D reconstructions. Exam date and time:January 05, 2025 1948 hours INDICATIONS: Ground-level fall today with injury to the neck, neck pain CTDI:vol (mGy) 12.2. DLP: (mGycm) 255. Technique: Multiple 2 mm axial sections of the cervical spine have been obtained. The coronal and sagittal reconstructions have been obtained. 3-D reconstructions have been obtained. Low dose protocols were performed. One or more of the following dose reduction techniques were used; automated exposure control, adjustment of the mA and/or KV according to patient size, use of iterative reconstruction technique. Findings: Axial sections demonstrate intact base of the skull. C1 exhibit satisfactory relationship to the odontoid. No acute cervical vertebral body fracture seen. Alignment posterior spinous processes satisfactory. Impression: No acute cervical fracture.
== END 2025-01-05 20:34 | disposition home or self-care (01) ==
PROVIDERS: Emergency Provider Emergency Medicine; PCP Family Medicine
DX: S09.90XA Unspecified injury of head, initial encounter (principal); S19.9XXA Unspecified injury of neck, initial encounter; W18.30XA Fall on same level, unspecified, initial encounter; Y93.01 Activity, walking, marching and hiking
CPT/HCPCS: 70450; 72125; 99284

== ENCOUNTER → 2025-01-29 | Outpatient (CLI) | payer MEDICARE, OTHER, SELFPAY ==
--- NOTE | 2025-01-29 11:00 | XR_ITS ---
Examination: MRI brain without intravenous contrast. 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 Siemens high-resolution 1.5 Ros short bore scanners utilized. Sagittal sections, T1-weighted, TR 500, TE 14, are performed. Axial sections proton-density and T2-weighted have been obtained. Inversion recovery axial images, TR 9, 260, TE 111, TI 2500. Diffusion weighted images, axial sections, TR 4800, TE 128, B value 1000 Axial sections, ADC map, TR 4800, TE 128 Findings: Enlargement of the sella turcica is not present. The optic chiasm and infundibular are not remarkable. Prepontine and interpeduncular cisterns are not enlarged. There is no localized enlargement of the medulla or hali. Fourth ventricle and cerebellar tonsils appear normal in position. No subacute area of hemorrhage density is seen. Mass in the cerebellopontine angle region is not evident. Globes symmetrical. Orbital musculature including medial lateral rectus muscles do not exhibit abnormality. Diffusion-weighted images demonstrate no focus of restricted diffusion. Increased white matter signal moderate Mass effect upon the ventricular system is not identified. Impression: Negative for acute hemorrhage mass effect or midline shift No acute infarct Moderate chronic microvascular white matter change
== END | disposition home or self-care (01) ==
LOC: SMRI 10:31
PROVIDERS: Referring Provider Psychiatry & Neurology Neurology; Visit Provider Psychiatry & Neurology Neurology
DX: R90.82 White matter disease, unspecified (principal)
CPT/HCPCS: 70551

== ENCOUNTER → 2025-02-17 | Outpatient (CLI) | payer MEDICARE, OTHER, SELFPAY ==
--- NOTE | 2025-02-17 | XR_ITS ---
Examination: CT chest with intravenous contrast 2-D sagittal and coronal reconstructions Exam date and time: February 17, 2025 1436 hours Comparison August 19, 2024 INDICATIONS: Diagnosis right breast cancer post mastectomy one year ago, restaging, bilateral pulmonary nodules noted on CT chest August 19, 2024 and February 13, 2024 CTDI:vol (mGy) 7.84 DLP: (mGycm) 281 Technique: Multiple axial sections of the thorax have been obtained. Sections have been obtained, 3 mm slice thickness. Mediastinal and lung density settings have been obtained. Intravenous contrast administered, 60 cc Isovue-370. 2-D sagittal, coronal images obtained. Low dose protocols were performed. One or more of the following dose reduction techniques were used; automated exposure control, adjustment of the mA and/or KV according to patient size, use of iterative reconstruction technique. Findings: Subcentimeter thyroid nodules again noted No thoracic aortic aneurysmal dilatation No pulmonary artery emboli No paratracheal tracheobronchial or bronchopulmonary adenopathy Stable bilateral pulmonary nodules No new pulmonary nodules No pneumonia or pulmonary edema or pleural disease No breast lesion chest wall lesion or axillary lymphadenopathy No visualized liver or splenic lesion No extrahepatic biliary tract dilatation No pancreatic mass Abdominal aortic calcification Kidneys partially visualized no hydronephrosis. Moderate osteopenia IMPRESSION: Stable bilateral pulmonary nodules, no new pulmonary nodules
[2025-02-17 12:08] LABS: Basophils # (Auto) 0.1 Thou/mm3 (0.0-0.2); Basophils % (Auto) 1 % (0-2.5); Eosinophils # (Auto) 0.2 Thou/mm3 (0.0-0.5); Eosinophils % (Auto) 2 % (0-10); Hematocrit 37.1 % (36.0-46.0); Hemoglobin 12.1 g/dL (12.0-16.0); Immature Granulocytes Auto 0.03 Thou/mm3 (0.00-0.00); Lymphocytes # (Auto) 2.7 Thou/mm3 (1.0-4.8); Lymphocytes % (Auto) 32 % (10-50); Mean Corpuscular HGB Conc 32.6 g/dl (31.0-37.0); Mean Corpuscular Hemoglobin 28.9 pg (25.0-35.0); Mean Corpuscular Volume 89 fL (80-100); Monocytes # (Auto) 0.4 Thou/mm3 (0.0-0.8); Monocytes % (Auto) 5 % (0-12); Neutrophils # (Auto) 5.0 Thou/mm3 (1.8-7.7); Neutrophils % (Auto) 60 % (37-80); Nucleated Red Blood Cell # 0.00 Thou/mm3 (0.00-0.00); Nucleated Red Blood Cell % 0 /100 WBC (0); Platelet Count 262 Thou/mm3 (140-440); RDW Standard Deviation 43.4 fL (36.4-46.3); Red Blood Count 4.19 Miln/mm3 (4.00-5.20); White Blood Count 8.3 Thou/mm3 (3.6-11.0)
[2025-02-17 12:44] LABS: Alanine Aminotransferase 8 U/L (10-49); Albumin, Serum 4.0 gm/dL (3.4-4.8); Albumin/Globulin Ratio 1.5 (1.2-2.2); Alkaline Phosphatase 87 U/L (46-116); Anion Gap 9 (7-16); Aspartate Amino Transferase 15 U/L (0-34); BUN/Creatinine Ratio 19 Ratio (12-20); Bilirubin,Total 0.4 mg/dL (0.3-1.2); Blood Urea Nitrogen 13 mg/dL (9-23); Calcium 9.3 mg/dL (8.3-10.6); Calcium (Corrected) 9.3 mg/dL (8.5-10.1); Carbon Dioxide 26.7 mMol/L (20.0-31.0); Chloride 106 mMol/L (98-107); Creatinine (Component) 0.7 mg/dL (0.6-1.3); Globulin 2.7 gm/dL (2.3-3.5); Glucose 206 mg/dL (74-106); Osmolality,Calculated 289 (275-295); Potassium 4.4 mMol/L (3.4-5.1); Sodium 142 mMol/L (136-145); Total Protein 6.7 gm/dL (5.7-8.2); eGFR > 60 See Note
== END | disposition home or self-care (01) ==
PROVIDERS: PCP Family Medicine; Referring Provider Internal Medicine Hematology & Oncology; Visit Provider Internal Medicine Hematology & Oncology
DX: R91.8 Other nonspecific abnormal finding of lung field (principal); D50.9 Iron deficiency anemia, unspecified
CPT/HCPCS: 36415; 71260; 80053; 85025; A4649; Q9967

== ENCOUNTER 2025-03-07 13:00 | Outpatient (RCR) | payer MEDICARE, OTHER, SELFPAY | END 2025-03-13 23:59 | disposition home or self-care (01) | LOC: SCTC 13:00 | PROVIDERS: PCP Family Medicine; Referring Provider Internal Medicine Hematology & Oncology; Visit Provider Internal Medicine Hematology & Oncology | DX: C50.412 Malignant neoplasm of upper-outer quadrant of left female breast (principal); Z17.0 Estrogen receptor positive status [ER+]; Z17.22 Progesterone receptor negative status; Z17.32 Human epidermal growth factor receptor 2 negative status; M85.89 Other specified disorders of bone density and structure, multiple sites; E53.8 Deficiency of other specified B group vitamins; Z86.2 Personal history of diseases of the blood and blood-forming organs and certain disorders involving the immune mechanism; Z90.12 Acquired absence of left breast and nipple; Z79.811 Long term (current) use of aromatase inhibitors | CPT/HCPCS: 96372; 99212; J3420; G0463 ==

== ENCOUNTER → 2025-03-15 | Outpatient (CLI) | payer MEDICARE, OTHER, SELFPAY ==
[2025-03-15 14:30] LABS: Basophils # (Auto) 0.1 Thou/mm3 (0.0-0.2); Basophils % (Auto) 1 % (0-2.5); Eosinophils # (Auto) 0.1 Thou/mm3 (0.0-0.5); Eosinophils % (Auto) 1 % (0-10); Hematocrit 38.9 % (36.0-46.0); Hemoglobin 12.4 g/dL (12.0-16.0); Immature Granulocytes Auto 0.01 Thou/mm3 (0.00-0.00); Lymphocytes # (Auto) 2.5 Thou/mm3 (1.0-4.8); Lymphocytes % (Auto) 34 % (10-50); Mean Corpuscular HGB Conc 31.9 g/dl (31.0-37.0); Mean Corpuscular Hemoglobin 29.0 pg (25.0-35.0); Mean Corpuscular Volume 91 fL (80-100); Monocytes # (Auto) 0.4 Thou/mm3 (0.0-0.8); Monocytes % (Auto) 6 % (0-12); Neutrophils # (Auto) 4.2 Thou/mm3 (1.8-7.7); Neutrophils % (Auto) 57 % (37-80); Nucleated Red Blood Cell # 0.00 Thou/mm3 (0.00-0.00); Nucleated Red Blood Cell % 0 /100 WBC (0); Platelet Count 228 Thou/mm3 (140-440); RDW Standard Deviation 45.2 fL (36.4-46.3); Red Blood Count 4.27 Miln/mm3 (4.00-5.20); White Blood Count 7.3 Thou/mm3 (3.6-11.0)
[2025-03-15 14:43] LABS: Glucose Estimated Average 192 mg/dL (80-131); Hemoglobin A1C 8.3 % Hgb (4.8-6.0)
[2025-03-15 14:47] LABS: Alanine Aminotransferase 10 U/L (10-49); Albumin, Serum 4.0 gm/dL (3.4-4.8); Albumin/Globulin Ratio 1.7 (1.2-2.2); Alkaline Phosphatase 93 U/L (46-116); Anion Gap 10 (7-16); Aspartate Amino Transferase 16 U/L (0-34); BUN/Creatinine Ratio 21 Ratio (12-20); Bilirubin,Total 0.3 mg/dL (0.3-1.2); Blood Urea Nitrogen 15 mg/dL (9-23); Calcium 9.9 mg/dL (8.3-10.6); Calcium (Corrected) 9.9 mg/dL (8.5-10.1); Carbon Dioxide 27.4 mMol/L (20.0-31.0); Cardiac Risk Estimate 2.3 RATIO (3.7-5.6); Chloride 107 mMol/L (98-107); Cholesterol 224 mg/dL (132-200); Creatinine (Component) 0.7 mg/dL (0.6-1.3); Globulin 2.4 gm/dL (2.3-3.5); Glucose 142 mg/dL (74-106); HDL Cholesterol 99 mg/dL (40-60); LDL Cholesterol,Calculated 105 mg/dL (0-130); Osmolality,Calculated 289 (275-295); Potassium 4.2 mMol/L (3.4-5.1); Sodium 144 mMol/L (136-145); Total Protein 6.4 gm/dL (5.7-8.2); Triglycerides 98 mg/dL (30-150); eGFR > 60 See Note
[2025-03-15 14:58] LABS: Creatinine MALB Rnd Ur 80 mg/dL (30-125); Microalbumin, Random Urine < 3 mg/L (0-300)
== END | disposition home or self-care (01) ==
LOC: COPL 12:53
PROVIDERS: PCP Family Medicine; Referring Provider Family Medicine; Visit Provider Family Medicine
DX: E11.65 Type 2 diabetes mellitus with hyperglycemia (principal); D50.9 Iron deficiency anemia, unspecified
CPT/HCPCS: 36415; 80053; 80061; 82043; 82570; 83036; 85025

== ENCOUNTER 2025-04-04 12:59 | Outpatient (RCR) | payer MEDICARE, OTHER, SELFPAY ==
--- NOTE | 2025-03-29 13:10 | CTCFLWUP_ITS ---
Patient: OFE TERRAZAS : 1945 Page 8 of 10 FOLLOW UP NOTE DATE OF SERVICE: 03/29/2025 NAME: OFE TERRAZAS ACCOUNT: [id number] : 1945 AGE: 79 INTERVAL HISTORY: Patient is here for follow-up. Patient is doing well denies any concerns or complaints. Patient is yet to start Reclast. Patient stopped taking Fosamax. Patient takes her calcium and vitamin D along with multivitamin. Patient has no teeth. ONCOLOGY HISTORY: DIAGNOSIS: Iron deficiency anemia, unspecified [ICD10] D50.9 Stage IIA (pT2 pNO), ER positive, NM negative HER2 negative, low Oncotype Dx recurrence score of 24, left invasive lobular carcinoma, with lobular features, moderately differentiated, grade 2 of 3, Status post left simple mastectomy, left sentinel node biopsy, right prophylactic mastectomy 04/03/2023, Dr. Slater. No radiation indicated. Anastrozole started on 06/02/2023, plan to tailor 06/02 2 mm left lower lobe pulmonary nodule, (08/15/2023) History of iron deficiency anemia secondary to gastric bypass surgery 2010 B12 deficiency, on monthly injections. DEXA scan done on 12/19/2021, osteopenia, on Fosamax. DATE OF DIAGNOSIS: 04/03/2023 STAGE/TNM: Stage II ER positive breast cancer s/p bilateral mastectomy TREATMENT HISTORY: Care?Plan Start?Date Cycle Day Intent VENOfer?200mg?IV?weekly 05/27/2019 1 7 Palliative VENOfer?200mg?IV?wkly 01/30/2021 1 70 Palliative B?12?initial 04/06/2024 1 28 Palliative Reclast 03/15/2025 1 365 Palliative HISTORY OF PRESENT ILLNESS: PREVIOUS NOTE Ofe Terrazas is a 79-year-old ENG speaking female with history of gastric bypass surgery in 2010 for obesity, diabetes mellitus, former smoker, had CBC drawn on 03/11/2019. Hemoglobin was 10.6, hematocrit 34.8, MCV 89, WBC count 7.4, platelets 237,000's. Iron saturation was 9%. History of iron deficiency anemia. Stage IIA (pT2 pNO), ER positive, NM negative HER2 negative, low Oncotype Dx recurrence score of 24, left invasive lobular carcinoma, moderately differentiated, grade 2 of 3, Status post left simple mastectomy, left sentinel node biopsy, right prophylactic mastectomy 04/03/2023, Dr. Slater. 2011: Gastric bypass 04/14/2019: Hemoglobin 11.1, MCV 87, iron saturation 8%, ferritin 17. 05/27/2019?08/04/1999: Patient received 2 g of Venofer. 07/21/2019: WBC 9.0, hemoglobin 12.6, hematocrit 40, MCV 91, iron saturation 24%, ferritin 397. 01/27/2020: Hemoglobin 12.8, MCV 92, WBC 6.6, platelets 210,000. Iron saturation 42%, ferritin 296. 09/14/2021: Hemoglobin 12.6, MCV 91, WBC 6.0, ANC 2.5, platelets 249,000, 12/18/2021: Iron saturation 24%, ferritin 85, folate 5.32, B12 306. CBC not drawn. 12/19/2021: DEXA Impression: There is osteopenia based on lumbar spine measurements. There is osteopenia based on hip measurements Lumbar mineralization is decreased 2.5% compared with August 25, 2019 Hip mineralization is decreased 1.8% compared with August 25, 2019 01/08/2023: Mammogram 01/09/2023: breast ultrasound 02/11/2023: breast pathology 02/20/2023: breast MRI 04/03/2023: Bilateral mastectomy, pathology 05/13/2023: Hemoglobin 11.8, MCV 90, WBC 6.3, platelet count 210,000, iron saturation 23%, ferritin 11, B12 is 372, folate 24. 05/28/2023: Oncotype Dx score 08/15/2023: Hemoglobin 11.8, MCV 88 iron saturation 23%, ferritin 13, CEA 2.8, CA 15-3 is 19.3 08/15/2023: CT chest without contrast IMPRESSION: 6 mm left thyroid nodule 2 mm, adjacent 2 mm left lower lobe pulmonary nodules, with this study is baseline suggest 6 month follow-up CT chest without contrast Nodular thickening left adrenal gland, consider CT scan abdomen pelvis post intravenous contrast follow-up 09/16/2023: CT abdomen and pelvis with contrast Impression: Nodular thickening left adrenal gland Abnormal uterus, large, at least 5.8 cm hypodense uterine fundal mass, recommend transvaginal transabdominal pelvic sonography follow-up 09/23/2023: Left Breast US Findings: No cystic or solid mass noted Impression: BI-RADS Category 1: Negative study 10/14/2023: Abdominal ultrasound MPRESSION: Absent gallbladder Normal common bile duct Primary hepatocellular disease no focal liver lesions Moderate bilateral renal parenchymal scar formation, no hydronephrosis 10/14/2023: Pelvic/transvaginal ultrasound IMPRESSION: Large uterine fundal mass 6.8 x 6.9 x 7.1 cm, differential would include malignant neoplasm of the uterus Recommend MRI pelvis follow-up pre and postcontrast 10/20/2023 : brain MRI Impression: Stable 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 anastrozole - 1 mg 1 mg once 2. carbamazepine - 200 mg 1 tab As directed 3. Centrum Silver Ultra Women's - 1 tab Daily 4. folic acid - 1 mg 1 tab Daily 5. glimepiride - 2 mg 1 tab Daily 6. memantine - 10 mg 1 tab Twice a Day 7. metFORMIN - 1,000 mg 2 tab Twice a Day 8. sertraline - 25 mg 1 tab Every day before sleep Medications Last Reconciled by Evelia Noonan MA on 03/29/2025 ALLERGIES: hydrocodone-acetaminophen; oxycodone; VICCYL SUTURE REVIEW OF SYSTEMS: A complete 14-point review of systems was performed and is negative except as noted in interval history. PHYSICAL EXAMINATION: VITAL SIGNS: PAIN: 0 - No pain GENERAL APPEARANCE: Appears well, in no apparent distress, appropriately interactive. HEENT: Normocephalic, no temporal wasting, normal conjunctiva, no scleral icterus, normal hearing, lips without lesions, neck normal range of motion. CARDIOVASCULAR: Not assessed. PULMONARY: Normal respiratory effort, no respiratory distress or use of accessory muscles, speaking in full sentences, no tachypnea. EXTREMITIES: No pedal edema or cyanosis. SKIN: Normal skin appearance. NEUROLOGIC: Alert and oriented x4. PSHYCHIATRIC: cooperative, calm LABORATORY DATA: I have personally reviewed and interpreted each of the patient?s relevant lab tests, abnormal findings are below: Date 02/17/25 03/15/25 ??WHITE?BLOOD?COUNT?(Thou/mm3) 8.3 7.3 ??RED?BLOOD?COUNT?(Miln/mm3) 4.19 4.27 ??HEMOGLOBIN?(gm/dl) 12.1 12.4 ??HEMATOCRIT?(%) 37.1 38.9 ??PLATELET?COUNT?(Thou/mm3) 262 228 ??NEUTROPHILS?%,?AUTO?(%) 60 57 ??LYMPH?%,?AUTO?(%) 32 34 ??NEUTROPHILS,?AUTO?(Thou/mm3) 5.0 4.2 ??GLUCOSE,RANDOM?(mg/dL) 206?H 142?H ??BLOOD?UREA?NITROGEN?(mg/dL) 13 15 ??CREATININE?(mg/dL) 0.70 0.70 ??SODIUM?(mmol/L) 142 144 ??POTASSIUM?(mmol/L) 4.4 4.2 ??CHLORIDE?(mmol/L) 106 107 ??CrCl?(CandG)?(ml/min) 57.56 56.73 ??AST/SGOT?(Unit/L) 15 16 ??ALT/SGPT?(Unit/L) 8?L 10 ??ALKALINE?PHOSPHATASE?(Unit/L) 87 93 ??BILIRUBIN,?TOTAL?(mg/dL) 0.4 0.3 ??PROTEIN?TOTAL?(gm/dl) 6.7 6.4 ??ALBUMIN,?SERUM?(gm/dl) 4.0 4.0 ??GLOBULIN?(gm/dl) 2.7 2.4 ??ALBUMIN/GLOBULIN?RATIO 1.5 1.7 ??CALCIUM,?SERUM?(mg/dL) 9.3 9.9 ??CALCIUM?SERUM?(CORRECTED)?(mg/dL) 9.3 9.9 ASSESSMENT/PLAN: Ofe Terrazas is a female, former smoker presenting for follow-up of breast cancer with recent stable imaging findings and a history of osteopenia. Stage IIA (pT2 pNO), ER positive, NM negative, HER2 negative, low Oncotype Dx recurrence score of 24, left invasive lobular carcinoma, with lobular features, moderately differentiated, grade 2 of 3, Status post left simple mastectomy, left sentinel node biopsy, right prophylactic mastectomy 04/03/2023, Dr. Slater, declined revision for excess skin at surgical site. Continue anastrozole for at least 7 years Patient tolerating well Osteopenia -Continue Centrum -Zometa every 6 months . No dental clearance needed ORDERS: Order # Description [id number] CBC + Comprehensive Metabolic Panel [id number] Lab Appointment [id number] CBC + Comprehensive Metabolic Panel [id number] Lab Appointment [id number] CBC + Comprehensive Metabolic Panel [id number] Lab Appointment [id number] CBC + Comprehensive Metabolic Panel [id number] Lab Appointment [id number] CBC + Comprehensive Metabolic Panel [id number] Lab Appointment [id number] CBC + Comprehensive Metabolic Panel [id number] Lab Appointment [id number] CBC + Comprehensive Metabolic Panel [id number] Lab Appointment RETURN TO CLINIC: I reviewed the diagnosis, prognosis, and recommended treatment/procedure options with the patient (and/or their legal fulfillment representative), including the potential benefits, risks, side effects and alternative therapies. We also discussed the option of no treatment and the possibility of clinical trial participation, if applicable. All questions were addressed, and they demonstrated understanding. They provided informed consent to proceed with the proposed plan of care. BILLING AND COMPLIANCE: I reviewed external records from providers outside my specialty as summarized above. I spent a total of 50 minutes on this patient?s care on the day of their visit excluding time spent related to any billed procedures. This time includes time spent with the patient as well as time spent documenting in the medical record, reviewing patients records and tests, obtaining history, placing orders, communicating with other healthcare professionals, counseling the patient, family or caregiver, and/or care coordination for the diagnoses above. Electronically Signed by: Eloy Duarte MD T: 1:08 PM CC: PCP: Evelia Sales Referring: Evelia Sales This document was completed utilizing speech recognition software. Grammatical errors, random word insertions, pronoun errors, and incomplete sentences are an occasional consequence of this system due to software limitations, ambient noise, and hardware issues. Any formal questions or concerns about the content, text or information contained within the body of this dictation should be directly addressed to the provider for clarification.
== END 2025-04-12 23:59 | disposition home or self-care (01) ==
LOC: SCTC 12:59
PROVIDERS: PCP Family Medicine; Referring Provider Family Medicine; Visit Provider Internal Medicine Hematology & Oncology
DX: D50.9 Iron deficiency anemia, unspecified (principal); C50.412 Malignant neoplasm of upper-outer quadrant of left female breast; Z17.0 Estrogen receptor positive status [ER+]; Z17.22 Progesterone receptor negative status; Z17.32 Human epidermal growth factor receptor 2 negative status; M85.89 Other specified disorders of bone density and structure, multiple sites; Z90.13 Acquired absence of bilateral breasts and nipples; Z79.811 Long term (current) use of aromatase inhibitors
CPT/HCPCS: 96365; 96372; 99212; A4216; J3420; J3489; J7030; G0463

== ENCOUNTER 2025-05-02 14:05 | Outpatient (RCR) | payer MEDICARE, OTHER, SELFPAY | END 2025-05-13 23:59 | disposition home or self-care (01) | LOC: SCTC 14:05 | PROVIDERS: PCP Family Medicine; Referring Provider Family Medicine; Visit Provider Internal Medicine Hematology & Oncology | DX: E53.8 Deficiency of other specified B group vitamins (principal); D50.9 Iron deficiency anemia, unspecified | CPT/HCPCS: 96372; J3420 ==

== ENCOUNTER 2025-06-27 09:47 | Outpatient (RCR) | payer MEDICARE, OTHER, SELFPAY | END 2025-07-13 23:59 | disposition home or self-care (01) | LOC: SCTC 09:47 | PROVIDERS: PCP Family Medicine; Referring Provider Family Medicine; Visit Provider Internal Medicine Hematology & Oncology | DX: E53.8 Deficiency of other specified B group vitamins (principal); D50.9 Iron deficiency anemia, unspecified; Z98.84 Bariatric surgery status; C50.412 Malignant neoplasm of upper-outer quadrant of left female breast; Z17.0 Estrogen receptor positive status [ER+]; Z17.22 Progesterone receptor negative status; Z17.32 Human epidermal growth factor receptor 2 negative status; Z90.12 Acquired absence of left breast and nipple; Z79.811 Long term (current) use of aromatase inhibitors; M85.89 Other specified disorders of bone density and structure, multiple sites | CPT/HCPCS: 96372; J3420 ==

== ENCOUNTER → 2025-06-27 | Outpatient (CLI) | payer MEDICARE, OTHER, SELFPAY ==
[2025-06-27 12:32] LABS: Glucose Estimated Average 217 mg/dL (80-131); Hemoglobin A1C 9.2 % Hgb (4.8-6.0)
[2025-06-27 12:38] LABS: Anion Gap 9 (7-16); BUN/Creatinine Ratio 14 Ratio (12-20); Blood Urea Nitrogen 10 mg/dL (9-23); Calcium 9.0 mg/dL (8.3-10.6); Carbon Dioxide 26.3 mMol/L (20.0-31.0); Cardiac Risk Estimate 2.2 RATIO (3.7-5.6); Chloride 107 mMol/L (98-107); Cholesterol 203 mg/dL (132-200); Creatinine (Component) 0.7 mg/dL (0.6-1.3); Glucose 223 mg/dL (74-106); HDL Cholesterol 93 mg/dL (40-60); LDL Cholesterol,Calculated 92 mg/dL (0-130); Osmolality,Calculated 289 (275-295); Potassium 3.8 mMol/L (3.4-5.1); Sodium 142 mMol/L (136-145); Triglycerides 89 mg/dL (30-150); eGFR > 60 See Note
== END | disposition home or self-care (01) ==
PROVIDERS: PCP Family Medicine; Referring Provider Family Medicine; Visit Provider Family Medicine
DX: E11.65 Type 2 diabetes mellitus with hyperglycemia (principal)
CPT/HCPCS: 36415; 80048; 80061; 83036